=== PATIENT | male | born 1995 | race Caucasian/White ===

== ENCOUNTER 2022-10-05 19:51 | Emergency (ER) | payer OTHER, SELFPAY ==
--- NOTE | ~2022-10-05 | US_ITS ---
EXAMINATION: US SCROTUM CLINICAL INFORMATION: Palpable left scrotal mass. COMPARISON: None TECHNIQUE: A sonogram of the scrotum was performed assessing mac-scale appearance and color Doppler flow. Spectral Doppler analysis of the arterial and venous flow were performed in the testes bilaterally. FINDINGS: RIGHT: Right testicle measures 4.4 x 1.9 x 3.3 cm, volume 14 mL. No focal testicular parenchymal lesions are visualized. Spectral Doppler analysis of the arterial and venous flow is normal in the right testis. Right epididymal head is normal in size. No right hydrocele or varicocele is seen. Right epididymal Doppler flow is normal. LEFT: Left testicle measures 4.1 x 2.0 x 3.2 cm, volume 14 mL. No focal testicular parenchymal lesions are visualized. Spectral Doppler analysis of the arterial and venous flow is normal in the left testis. Left epididymal head is normal in size. No left hydrocele or varicocele is seen. Left epididymal Doppler flow is normal. OTHER FINDINGS: Adjacent to the left testicle, in the area of the palpable abnormality, there is significant extratesticular soft tissue thickening with heterogeneous echogenicity and marked hyperemia. A distinct masslike lesion or organized abscess are not identified. US/US scrotum IMPRESSION: 1. Significant left-sided extratesticular soft tissue thickening and hyperemia in the area of the palpable abnormality. A distinct masslike lesion or organized abscess is not identified. This could be related with cellulitis/phlegmonous changes, correlate with physical examination and continued follow-up after treatment to ensure resolution. 2. No evidence of testicular torsion at the moment of this examination.
--- NOTE | 2022-10-05 20:24 | ED.MALEGU ---
HPI - Male Genitourinary General Chief complaint: Skin/Abscess/Foreign Body <Dottie Brown NP - Last Filed: 10/05/22 20:27> Stated complaint: cyst on scrotal area <Dottie Brown NP - Last Filed: 10/05/22 20:27> Time Seen by Provider: 10/06/22 00:43 <Dottie Brown NP - Last Filed: 10/05/22 20:27> Source: patient <Julius Feng MD - Last Filed: 10/06/22 01:19> Mode of arrival: ambulatory <Julius Feng MD - Last Filed: 10/06/22 01:19> Limitations: no limitations <Julius Feng MD - Last Filed: 10/06/22 01:19> History of Present Illness HPI Narrative: 26-year-old male who presents emergency department for evaluation of pain and swelling of his left scrotal area. The patient states he does shave his pubic hair. He states that he noticed a small bump on his left scrotal area yesterday which is gotten bigger and more painful. He also states that the left scrotum is red and swollen. He denied fever, chills, frequency, urgency dysuria or urethral discharge. Patient states he did have a cyst on his left inner thigh approximately 2 years prior which was treated with antibiotics. He has not had an abscess that is needed to be incised and drained. He has not been on antibiotics recently knee does not have a history of MRSA. <Julius Feng MD - Last Filed: 10/06/22 01:19> Related Data Home medications: Previous Rx's Medication Instructions Recorded cephalexin 500 mg capsule 500 mg PO TID 7 days #21 caps 10/06/22 doxycycline hyclate 100 mg tablet 100 mg PO Q12H 7 days #14 tabs 10/06/22 <Dottie Brown NP - Last Filed: 10/05/22 20:27> Allergies/Adverse reactions: Allergies Allergy/AdvReac Type Severity Reaction Status Date / Time No Known Allergies Allergy Verified 10/05/22 20:25 <Dottie Brown NP - Last Filed: 10/05/22 20:27> Review of Systems Review of Systems: Yes all other systems are reviewed and are negative <Julius Feng MD - Last Filed: 10/06/22 01:19> [facility] Past Medical History [facility] Narrative: Past medical history: Left thigh cyst treated with antibiotic. Past surgical history: None social history: He denies tobacco, alcohol and drug use. <Julius Feng MD - Last Filed: 10/06/22 01:19> Social History Social History: Social History Advance Directives: No <Dottie Brown NP - Last Filed: 10/05/22 20:27> Physical Exam Vital Signs: Vital Signs: Last Vital Signs Temp 98.5 F 10/06/22 00:00 Pulse 67 10/06/22 00:00 Resp 16 10/06/22 00:00 BP 119/73 10/06/22 00:00 Pulse Ox 99 10/06/22 00:00 O2 Del Method 10/06/22 00:00 BMI result Body Mass Index 29.0 <Dottie Brown NP - Last Filed: 10/05/22 20:27> Vital Signs: Last Vital Signs Temp 98.5 F 10/06/22 00:00 Pulse 67 10/06/22 00:00 Resp 16 10/06/22 00:00 BP 119/73 10/06/22 00:00 Pulse Ox 99 10/06/22 00:00 O2 Del Method 10/06/22 00:00 BMI result Body Mass Index 29.0 Vital signs reviewed <Julius Feng MD - Last Filed: 10/06/22 01:19> General: Awake, alert, male patient, very pleasant cooperative, no distress examination: Normal uncircumcised male penis, no urethral discharge or swelling of the ball of the penis, the patient has a indurated area to the lateral aspect of his left scrotum, this area is warm to the touch, there is no flocculence, patient has no significant testicular tenderness or epididymal tenderness or swelling noted on my exam. He does have some tender left inguinal adenopathy compared to the right. <Julius Feng MD - Last Filed: 10/06/22 01:19> Course Course Course Narrative: This is a rapid medical exam. Deferred additional HPI, ROS, PE to primary provider. 26 yo male healthy here with complaints of left scrotal cyst since yesterday. Will obtain ultrasound. VSS. <Dottie Brown NP - Last Filed: 10/05/22 20:27> Medical Decision Making Medical Decision Making MDM Narrative: 26-year-old male who presents emergency department for evaluation of a left scrotal lesion which started yesterday is gotten larger. Physical examination did reveal indurated skin of the left lateral scrotal region which is warm to touch. Patient has no significant testicular or epididymal tenderness. Patient had an ultrasound of his left scrotal area did not reveal any abscess is more consistent with cellulitis. Patient was given Keflex 500 mg orally, doxycycline 100 mg orally and Tylenol 975 mg orally. Patient will be treated with Keflex 500 mg 3 times a day for 7 days and doxycycline 100 mg every 12 hours for 7 days. He was given printed and verbal instructions and discharged home. Patient was advised to apply heating pad for 10-15 minutes 4 to 6 times a day to the indurated area to help increase blood flow and help the healing process. <Julius Feng MD - Last Filed: 10/06/22 01:19> Differential Diagnosis Differential diagnosis includes was not limited to scrotal abscess, scrotal cellulitis, testicular torsion, epididymitis, urethritis <Julius Feng MD - Last Filed: 10/06/22 01:19> Radiology Impression Discussion of test interpretation with radiology: I have reviewed the radiologist's reading. <Julius Feng MD - Last Filed: 10/06/22 01:19> Radiologist Impression: US scrotum IMPRESSION: 1.? Significant left-sided extratesticular soft tissue thickening and hyperemia in the area of the palpable abnormality. A distinct masslike lesion or organized abscess is not identified. This could be related with cellulitis/phlegmonous changes, correlate with physical examination and continued follow-up after treatment to ensure resolution. 2.? No evidence of testicular torsion at the moment of this examination. ? Dictated By:Alexandria Jacome Signed By:<Electronically signed by Alexandria? Ayaz in [place]>[id number] <Julius Feng MD - Last Filed: 10/06/22 01:19> Discharge Plan Discharge Clinical Impression: Cellulitis of scrotum <Dottie Brown NP - Last Filed: 10/05/22 20:27> Patient Disposition: Home, Self-Care <Dottie Brown NP - Last Filed: 10/05/22 20:27> Additional Instructions: The ultrasound of your scrotum is consistent with a skin infection (cellulitis) of your left scrotum. There was no evidence for a collection of pus (abscess) based on the ultrasound and also based on your examination. Take doxycycline 100 mg, 1 pill every 12 hours for 7 days Take Keflex (cephalexin) 500 mg pills, 1 pill 3 times a day for 7 days. Take ibuprofen 200 mg pills, 3 pills every 6 hours as needed for pain. Take Tylenol (acetaminophen) 500 mg pills, 2 pills every 4 to 6 hours as needed for pain. Use a heating pad on low for 15 minutes 4 to 6 times a day to your left scrotal area, this will increase the blood flow to the skin and help fight off the skin infection. Follow-up with your doctor in 2 days. Please return to the emergency department if your symptoms get worse or if you develop any symptoms that are concerning to you. <Dottie Brown NP - Last Filed: 10/05/22 20:27> Prescriptions: New cephalexin 500 mg capsule 500 mg PO TID 7 Days Qty: 21 0RF doxycycline hyclate 100 mg tablet 100 mg PO Q12H 7 Days Qty: 14 0RF <Dottie Brown NP - Last Filed: 10/05/22 20:27>
[2022-10-05 20:26] VITALS: BP 113/78; PULSE 71; RESP 16; TEMP 37.1; O2SAT 97; BMI 29.0
--- OUTSIDE RECORDS SUMMARY | 2022-10-05 23:53 | XMS_ITS | Continuity of Care Document ---
:1995 Author Organization [facility] Care Team Providers Name Role Phone [facility] Unavailable Unavailable Problems Combined list of problems from Department of Defense and Veterans [facility] facilities. It does not include entries that were removed or entered in error. Problem Status Onset Date Problem Type Date of Comments Source Resolution Need For Inactive Condition DoD Vaccination MMR Need For Inactive Condition DoD Vaccination Polio Inactivated Need For Inactive Condition DoD Vaccination Yellow Fever Need For Inactive Condition DoD Vaccination Against Influenza Need For Inactive Condition DoD Prophylactic Antibiotics Need For Inactive Condition DoD Vaccination Against Viral Diseases Need For Inactive Condition DoD Vaccination Hepatitis A And Hepatitis B Need For Inactive Condition DoD Vaccination Against Bacterial Diseases Meningococcal Need For Inactive Condition DoD Vaccination Against Combinations Of Diseases visit for: Inactive Condition DoD screening exam pulmonary tuberculosis astigmatism Active Condition DoD regular refractive error - Active Condition D oD myopia visit for: Inactive Condition [facility] services physical accession Patient Education Inactive Condition Do D - Injury Prevention visit for: ears / Inactive Condition Do D hearing exam visit for: Inactive Condition [facility] services physical Medications Combined list of outpatient medications from Department of Defense and Veterans Affairs facilities. Medications provided include 1) outpatient medications from the last 15 months, and 2) patient-reported medications. Medication Details Route Status Patient Prescription Prescription Last Ordering Order Source Instructions Expires Number Dispense Provider Date Date FLUARIX Active [id number] LYNSEY, rmac QUAD 1 2020 y Data [id number] Transac (influenza tion virus Service vaccine Facilit quadrival y [id number](6 mos and up)/PF), 60MCG/.5ML, SYRINGE, INTRAMUSC, GLAXOSMITHK LINE, .5 ml SYRINGE Allergies, Adverse Reactions, Alerts Combined list of allergies from Department of Defense and Veterans Affairs facilities. It does not include entries that were removed or entered in error. Substance Category Reaction Severity Reaction Status Date Comments S ource type Reported No Known Drug active Camp Allergies allergy 4 Lejeun e (disorder) [facility] Immunizations Combined list of available immunizations from the Department of Defense and Veterans Affairs facilities. Immunization Series Date Administered Site Reaction Lot CVX Drug St atus Comments Source Given By Number Code Manager Urgent Care influenza, 08/18/ LYNSEY, () Not influe nza DoD injectable, 2020 Given , quadrivalent, inject abl preservative e, free quadrival ent, preservat walter free Influenza, 1 05/30/ MILES, [id number] 171 SmithKline compl et Influenza DoD injectable, 2016 TAHIR Levin ([facility]) ed , Madin Davis injectab l Canine e, Madin Kidney, Davis preservative Canine free, Kidney, quadrivalent preserv at walter free, quadrival ent measles, 2 05/25/ FLO, [id number] 03 Merck (MSD) compl et measles, DoD mumps and 2016 SIMON Grimes ed mumps an d rubella virus rubell a vaccine virus vaccine Influenza, 1 06/27/ ROCÍO, [id number] 150 SmithKline comple t Influenza DoD injectable, 2015 LI Grimes ([facility]) ed , quadrivalent, inject abl preservative e, free quadrival ent, preservat walter free influenza, 1 07/13/ JACKELYN, [id number] 149 MedImmune, comple t influenza DoD live, 2014 LUCI J Inc. (MED) ed , brianna e, intranasal, intranas a quadrivalent l, quadrival ent influenza, 1 06/17/ LEROY REN [id number] 149 MedImmune, co mplet influenza DoD live, 2014 Inc. (MED) ed , live, intranasal, intranas a quadrivalent l, quadrival ent typhoid Vi 1 05/09/ LESLIE, [id number] 101 Sanofi complet t yphoid DoD capsular [address] Carrillo ([facility]) ed Vi polysaccharid capsul ar e vaccine polysacch aride vaccine hepatitis A 3 02/24/ JACKELYN, [id number] 104 SmithKline comple t hepatitis DoD and hepatitis 2013 LUCI Sapp (SKB) ed A and B vaccine hepatitis B vaccine hepatitis A 2 09/03/ NATHANIEL, [id number] 104 SmithKline complet hepatitis DoD and hepatitis 2012 CAROLYN Skinner (SKB) ed A and B vaccine hepatitis B vaccine poliovirus 1 09/03/ NATHANIEL, [id number] 10 Sanofi complet austin oviru DoD vaccine, 2013 CAROLYN Carrillo (PMC) ed s inactivated vaccine, inactivat ed measles, 1 09/03/ NATHANIEL, [id number] 03 Merck (MSD) complet measles, DoD mumps and 2013 CAROLYN Skinner ed mumps and rubella virus rubell a vaccine virus vaccine yellow fever 1 09/03/ NATHANIEL, [id number] 37 Sanofi complet yellow DoD vaccine 2013 CAROLYN Carrillo (PMC) ed fever vaccine poliovirus 0 08/30/ UNK 10 Sanofi complet polio viru DoD vaccine, 2013 Pasteur (PMC) ed s inactivated vaccine, inactivat ed yellow fever 0 08/30/ UNK 37 Sanofi complet yel low DoD vaccine 2013 Pasteur (PMC) ed feve r vaccine hepatitis A 2 08/30/ UNK 104 SmithKline complet hepatitis DoD and hepatitis 2013 (SKB) ed A and B vaccine hepatitis B vaccine varicella 1 07/26/ EXEMPT 21 Transcribed Not va ricella DoD virus vaccine 2013 (TRS) Given virus vaccine Adenovirus, 1 07/25/ JABARI CHURCHILL [id number] [employer] com plet Adenoviru DoD type 4 and 2013 R 5 Laboratories ed s, type 4 type 7, live, (BRR) and ty pe oral 7, live, oral hepatitis A 1 07/25/ JABARI CHURCHILL [id number] 104 SmithKline complet hepatitis DoD and hepatitis 2013 R (SKB) ed A and B vaccine hepatitis B vaccine influenza 1 07/25/ JABARI CHURCHILL [id number] 111 MedImmune, c omplet influenza DoD virus 2013 R Inc. (MED) ed virus vaccine, vaccine, live, live, attenuated, attenuat e for d, for intranasal intranasa use l use tuberculin 1 JABARI CHURCHILL [id number] 96 Other (OTH) complet tuberculi DoD skin test; 2012 R ed n skin purified test; protein purified derivative protein solution, derivativ intradermal e solution, intraderm al meningococcal 1 JABARI CHURCHILL [id number] 114 Sanofi complet meningoco DoD polysaccharid 2012 R Gerardo (PMC) ed ccal e (groups A, polysac ch C, Y and aride W-135) (groups diphtheria A, C, Y toxoid and conjugate W-135) vaccine diphtheri (MCV4P) a toxoid conjugate vaccine (MCV4P) tetanus 1 JABARI CHURCHILL [id number] 115 SmithKline comp let tetanus DoD toxoid, 2013 R (SKB) ed toxoid, reduced reduced diphtheria diphtheri toxoid, and a toxoid , acellular and pertu is acellular vaccine, pertussis adsorbed vaccine, adsorbed hepatitis A 1 07/24/ UNK 104 SmithKline complet hepatitis DoD and hepatitis 2012 (SKB) ed A and B vaccine hepatitis B vaccine tetanus 0 07/24/ UNK 115 Sanofi complet tetanus DoD toxoid, 2013 Pasteur (PMC) ed toxo id, reduced reduced diphtheria diphtheri toxoid, and a toxoid , acellular and pertu is acellular vaccine, pertussis adsorbed vaccine, adsorbed Adenovirus, 0 07/24/ UNK 143 Fortnue complet Adeno viru DoD type 4 and 2013 Laboratories ed s, type 4 type 7, live, (BRR) and ty pe oral 7, live, oral influenza, 0 07/24/ UNK 149 MedImmune, complet i nfluenza DoD live, 2013 Inc. (MED) ed , live, intranasal, intranas a quadrivalent l, quadrival ent Encounters Combined list of: 1) Encounters from Department of Veterans Affairs facilities going back up to the last 18 months. 2) Encounters from the Department of Defense facilities going back up to 280 months. Location Location Encounter Encounter Reason Attending ADM DC Stat us Disposition Source Details Type Number For Provider Date Date Visit OUTPATIENT [id number] OCTAVIAN[facility], 07/24 Released w[facility]o [facility]AS D Limitations [facility] johnson(MCR D Hearing Conserv ation) OUTPATIENT [id number] [facility] ed [facility] CARIE J Limitations [facility] Mariano johnson(MCR D Optomet ry Clinic) OUTPATIENT [id number] Initial LELAND, 07/25 Relea sed w/o [employer] Inproce DEEDEE N Limitations [facility] Mariano johnson(MCR D Recruit Medical Process ) OUTPATIENT [id number] , 09/03 Released w/o [employer] Visit NATANAEL Limitations [facility] Inproce Mariano johnson([facility] D Recruit Medical Process ) OUTPATIENT [id number] Notes JACKELYN, 02/24 Released w/o [facility] Entered LUCI J Limitations Po rtsmo by: [facility](Imm ELYSE,DA unizati VID 23 on Feb) 2013 1340 ------- ------- ------- ------- -- Twinrix , Check-i n OUTPATIENT [id number] DEEPAK, 03/06 Released w/o [facility] URI Limitations [place] [facility](Hea ring Cons Noah Sta) OUTPATIENT [id number] Zach NELSON, 05/09 Released w/o [facility] Entered Limitations Po rtsmo by: P [facility](Norbert thompson ANO,MAR on ) May 2014 0949 ------- ------- ------- ------- -- typhoid OUTPATIENT [id number] LEROY Donaldson 06/17 Releas ed w/o [facility] Entered Limitations [place] by: [facility](ANGELA Nascimento lt N L 14 Reconst Jun ruction 2013 / 1546 Joint) ------- ------- ------- ------- -- Flu Team 3 OUTPATIENT [id number] FLU LENO, 08/27 08/27 Sick at [facility] LIKE JOSE S Home/Quarter [place] SYMPTOM s [facility](MHP S WITH Guevara BODY T1) PAIN X2DAYS OUTPATIENT [id number] Zach TATE, 09/15 Released w/o [facility] Entered STEPHEN Limitations Po rtsmo by: [facility](jay Treadwell E on Sep) 2014 1452 ------- ------- ------- ------- -- HPV OUTPATIENT [id number] ROMAN MEEK, 10/06 Released w /o [facility] EYE WILBERT Limitations [place] EXAM [facility](Opt ometry George) OUTPATIENT [id number] STOMACH YOSAY, 10/23 10/23 Sick at [facility] PAIN KADEN /2014 Home/Quarter [place] WORSE s [facility](MHP X3DAYS Guevara T1) OUTPATIENT [id number] brandy CORRALES, 11/07 11/08 Release d w/o [facility] SOSA M /2014 Limitations [place](MHP [place] T1) OUTPATIENT [id number] Zach HAYDEN, 07/13 Released w/o [facility] Entered Limitations Po rtsmo by: [facility](Norbert AZUL, melaniejamshid ASHLEY E on Jul Guevara) 2014 1201 ------- ------- ------- ------- -- Flumist OUTPATIENT [id number] Zach OHARA, 09/14 Released w/o [facility] Entered Limitations [place] by: [facility](Moises jeter ,NAKUL Cons P L 11 Gue[place]a) Sep 2015 1325 ------- ------- ------- ------- -- hcp OUTPATIENT [id number] DOROTHEA CORRALES, 11/10 11/11 Relea sed w/o [facility] Odalys SWAN Limitations [place] NOSEBLE [facility] EDS Guevara PAST T1) 72HRS. OUTPATIENT [id number] BRANDY CORRALES, 01/05 01/06 Release d w/o [facility] SOSA Limitations [place](P [place] T1) OUTPATIENT [id number] Zach VILLA, 06/27 Released w/o [facility] Entered Limitations [place] by: JANNIE [facility] R 24 NMCP) Jun 2016 1413 ------- ------- ------- ------- -- flu shot OUTPATIENT [id number] PAIN/SW TAMMY, 07/06 Releas ed [facility] RAJEEV RIOS P with [place] IN Work/Duty [facility] RIGHT Limitations Gue[place] ANKLE X T1) 24 HRS OUTPATIENT [id number] EYE HENRRY, IGLESIA 07/07 Relea sed w/o N[facility] EXAM/ NMN Limitations [place] CONTACT [facility](Opt S ometry Guevara) OUTPATIENT [id number] Special BRADFORD, 10/27 Rel eased w/o [facility] Duty Limitations [place] Screen PRASANNA [facility](P Gue[place] T2) OUTPATIENT [id number] Zach OHARA, 01/03 Released w/o [facility] Entered Limitations [place] by: [facility](steffany Bates D Cons January) 2016 0832 ------- ------- ------- ------- -- hcp OUTPATIENT [id number] BRANDY CORRALES, 01/03 Release d w/o [facility] SOSA Limitations [place] [facility](MHP Gue[place]a T1) OUTPATIENT [id number] Zach TRIVEDION, 05/25 Release d w/o [facility] Entered Limitations [place] by: [facility](Cornelio Bernard on ) May 2017 1335 ------- ------- ------- ------- -- MMR OUTPATIENT [id number] Zach PENA, 05/30 Released w /o [facility] Entered Limitations [place] by: JANE [facility](HANNAH Gotti Team May [facility]) 2016 1325 ------- ------- ------- ------- -- SHOTEX BROWN OUTPATIENT [id number] Zach OHARA, 09/26 Released w/o [facility] Entered Limitations [place] by: [facility](Moises MARCIAL Cons ,WILFREDO Guevara) E 26 Sep 2017 0828 ------- ------- ------- ------- -- hcp OUTPATIENT [id number] may nathaniel HENRRYIGLESIA 10/27 Rel eased w/o N[facility] NMN /2017 Limitations [place] [facility](Opt ometry Guevara) OUTPATIENT [id number] Zach OHARA, 03/21 Released w/o [facility] Entered Limitations [place] by: [facility](steffany Bates D Cons Mar) 2017 0840 ------- ------- ------- ------- -- hcp OUTPATIENT [id number] ePHA VIDAL, 04/09 Released w/o [facility] MAXIME A Limitations [place] [facility](Med ical Readine ss Guevara) OUTPATIENT [id number] IGLESIA Nunez 04/12 Relea sed w/o N[facility] Entered NMN Limitations [place] by: [facility](Opt CUONG saucedo ,VICTOR MANUEL Guevara) ZEENAT 12 Apr 2018 0830 ------- ------- ------- ------- -- sep phys OUTPATIENT [id number] Separdebby GRIFFIN, 05/15 Rel eased w/o N[facility] ion PE Limitations [place] VILLALOBOS [facility](Med ical Readine ss Guevara) Procedures Combined list of: 1) Procedures from Department of Veterans Affairs facilities going back up to the last 18 months, not all VA non-surgical procedures are included; 2) All procedures from the Department of Defense facilities. Procedure Procedure Type Code Date Perfomer Comments [facility] [place] [address] 05/16/ GABY [facility] Visual Acuity, Visual Acuity, 2017 YANN Quantitative, Quantitative, GRISELDA Bilateral Bilateral Preventive Medicine Preventive Medicine 84065 05/16/ GRIFFIN, Juan Administration Of Administration Of 2018 YANN Health Risk Health Risk GRISELDA Questionnaire Questionnaire Patient-Focused Patient-Focused Visual Function Visual Function 43468 04/12/ IGLESIA SALES DoD Screening Screening 2018 NMN Preventive Medicine Preventive Medicine 61864 04/10/ Juan VIDAL Administration Of Administration Of 2018 MAXIME A Health Risk Health Risk Questionnaire Questionnaire Patient-Focused Patient-Focused Threshold Audiogram Threshold Audiogram 0208T 03/21/ RENEE OHARA DoD (Pure Tone) (Pure Tone) 2018 R Automated Automated Patient education, 03/21/ GLENDA OHARA not otherwise cla 2018 R ified, non-physician provider, group, per se ion Visual Function Visual Function 03465 10/27/ IGLESIA SALES DoD Screening Screening 2018 NMN Threshold Audiogram Threshold Audiogram 0208T 09/26/ RENEE OHARA (Pure Tone) (Pure Tone) 2018 R Automated Automated Patient education, 09/26/ GLENDA OHARA not otherwise cla 2018 R ified, non-physician provider, group, per se ion Viral Influenza Viral Influenza 33118 05/31/ EAST, DoD Vaccine Cell Vaccine Cell 2017 AMRIK La Culture Derivative, Culture Derivative, Antibiotic Free, Antibiotic Free, Quadrivalent, 0.5mL Quadrivalent, 0.5mL Dosage, IM Dosage, IM Immunization Immunization 16408 [facility] Administration By Administration By 2016 AMRIK D Injection, One Injection, One Vaccine Vaccine Vaccines Viral Vaccines Viral 26650 05/25/ FLO, MMR; Serie s #: DoD Measles, Mumps and Measles, Mumps and 2017 SIMON R 2; .5 mL; SC; Rubella, Live Rubella, Live Left Arm; g: Geewa; Lot: [id number]; VIS given (Danielle: 12/23/11). Immunization Immunization 20170 05/25/ [place], [facility] Administration By Administration By 2016 SIMON R Injection, One Injection, One Vaccine Vaccine Patient education, 01/03/ GLENDA OHARA not otherwise cla 2017 R ified, non-physician provider, group, per se ion Threshold Audiogram Threshold Audiogram 0208T 01/03/ RENEE OHARA (Pure Tone) (Pure Tone) 2017 R Automated Automated Prescription And Prescription And 12925 07/07/ HENRRY, IGLESIA Martinez Fitting Bilateral Fitting Bilateral 2016 NMN Corneal Lenses (Not Corneal Lenses (Not For Aphakia) For Aphakia) Spectacles Services Spectacles Services 89386 07/07/ HENRRY, IGLESIA Martinez Fitting Monofocal Fitting Monofocal 2016 NMN Except For Aphakia Except For [place]ph[place] [address] 07/07/ HENRRY, IGLESIA Juan Refractive State Refractive State 2016 CTN Ophthalmological Ophthalmological 35108 07/07/ HENRRY, IGLESIA Juan New Patient Start New Patient Start 2015 [facility] Comprehensive Care Comprehensive Care Influenza Split 06/27/ [facility] Influenza Juan Virus Vaccine IM 2016 LI VALDERRAMA Seasonal, Preserv Free 0.5mL injectable Dosage Quadrivalent quadrivale nt - preservative free; Series #: 1; .5 mL; IM; Right Arm; [facility]: [employer]; Lot: [id number]; VIS given (Danielle: 04/10/2015). Immunization Immunization 05895 06/27/ [facility], [facility] Administration By Administration By 2015 LI VALDERRAMA Injection, One Injection, One Vaccine Vaccine Threshold Audiogram Threshold Audiogram 0208T 09/14/ RENEE OHARA (Pure Tone) (Pure Tone) 2015 R Automated Automated Patient education, 09/14/ GLENDA OHARA not otherwise cla 2015 R ified, non-physician provider, group, per se ion Influenza Virus Influenza Virus 65679 07/13/ JACKELYN Influenz nancy, Juan Vaccine Live Vaccine Live 2014 LUCI Sapp live, Attenuated Attenuated intranasal, Intranasal Intranasal quadrivalent; Quadrivalent Quadrivalent Series #: 1; . 2 mL; IN; Intranasal; Mfg: tic; Lot: [id number]; VIS given (Danielle: 04/22/14). Immunization Admin Immunization Admin 00652 07/13/ Juan HAYDEN By Intranasal / By Intranasal / 2014 LUCI Sapp Oral Route One Oral Route One Vaccine Vaccine Ophthalmological Ophthalmological 88168 10/06/ Juan MEEK New Patient Start New Patient Start 2014 WILBERT Marley Comprehensive Care Comprehensive [place] [address] Juan MEEK Refractive State Refractive State 2014 WILBERT Marley Immunization Admin Immunization Admin 30102 06/17/ LEROY REN DoD By Intranasal / By Intranasal / 2013 Oral Route One Oral Route One Vaccine Vaccine Typhoid [place] [address] 05/09/ LESLIE, Ty phoid, ViCPs; DoD Capsular Capsular 2013 ADALBERTA P Series #: 1; .5 Polysaccharide, For Polysaccharide, For mL; IM; Left Intramus Use Intramus Use Arm; Mfg: Brightkit Pasteur; Lot: [id number]; VIS given (Danielle: 01/31/12). Immunization Immunization 02276 05/09/ Juan NELSON Administration By Administration By 2013 ADALBERTA P Injection, One Injection, One Vaccine Vaccine Threshold Audiogram Threshold Audiogram 0208T 03/06/ ADELFO SOTELO (Pure Tone) (Pure Tone) 2014 S Automated Automated Patient education, 03/06/ URI SOTELO not otherwise cla 2013 S ified, non-physician provider, group, per se ion Hepatitis A And Hepatitis A And 52963 02/24/ JACKELYN, Hep A - Hep B DoD Hepatitis B Hepatitis B 2013 LUCI Sapp (Twinrix); (Intramuscular Use) (Intramuscular Use) Series #: 3; Adult Dosage Adult Dosage 1.0 mL; IM; Right Arm; Mfg: [employer] Fort[employer]; Lot: [id number]. Immunization Immunization 56626 02/24/ JACKELYN [facility] Administration By Administration By 2013 LUCI J Injection, One Injection, One Vaccine Vaccine Physician Physician 69106 [facility] Supervised Supervised 2012 CAROLYN M Injection Injection Intramuscular Intramuscular Antibiotic Antibiotic Vaccines Viral Vaccines Viral 54125 , MMR; Serie s #: DoD Measles, Mumps and Measles, Mumps and 2012 CAROLYN M 1 ; .5 mL; SC; Rubella, Live Rubella, Live Left Arm; Mf g: Geewa; Lot: [id number]. Vaccines Viral Vaccines Viral 00228, IPV; Serie s #: [facility] Polio, Inactivated Polio, Inactivated 2012 CAROLYN M 1 ; .5 mL; SC; Left Arm; Mfg: Brightkit Pasteur; Lot: [id number]. Vaccines Viral Vaccines Viral , Yellow Fev er; DoD Yellow Fever Yellow Fever 2012 CAROLYN M Series #: 1; .5 mL; SC; Left Arm; Mfg: Brightkit Pasteur; Lot: [id number]. Hepatitis A And Hepatitis A And , Hep A - Hep B [facility] Hepatitis B Hepatitis B 2012 CAROLYN M (Twinrix); (Intramuscular Use) (Intramuscular Use) Series #: 2; Adult Dosage Adult Dosage 1.0 mL; IM; Left Arm; [facility]: [employer]; Lot: [id number]. Immunization Immunization 28482 [facility] Administration By Administration By 2012 CAROLYN M Injection, One Injection, One Vaccine Vaccine Immunization Immunization 42543 [facility] Administration By Administration By 2012 CAROLYN M Injection, Each Injection, Each Additional Vaccine Additional Vaccine Venipuncture Venipuncture 04788 07/25/ [facility] 2012 JABARI Grimes Influenza Virus Influenza Virus 57959 [facility] Vaccine Live Vaccine Live 2012 JABARI Grimes Attenuated Attenuated Intranasal Intranasal Quadrivalent Quadrivalent Physician Physician 25136 [facility] Supervised Supervised 2012 JABARI Grimes Injection Injection Intramuscular Intramuscular Antibiotic Antibiotic Hepatitis A And Hepatitis A And 51110 MCLEAN, Hep A - Hep B [facility] Hepatitis B Hepatitis B 2012 JABARI Grimes (Twinrix); (Intramuscular Use) (Intramuscular Use) Series #: 1; Adult Dosage Adult Dosage 1.0 mL; IM; Left Arm; Mfg: [employer]; Lot: [id number]. Meningococcal (A, , Meningococca l [facility] C, Y, W-135) 2012 AMYBETH R A,C,Y,W-135 Oligosacch Diphtheria Diphtheria Toxoid Conj; Series #: Conj Vacc 1; .5 mL; IM; Left Arm; Mfg: Sanofi Pasteur; Lot: [id number]. Tdap Vaccine Tdap Vaccine 18338, Tdap; Series # : [facility] 2012 AMYBETH R 1; .5 mL; IM; Left Arm; Mfg: [employer]; Lot: [id number]. Vaccines Vaccines 74361, Adenovirus Type [facility] 2012 AMYBETH R 4 and 7; Series #: 1; 2 gtts; PO; Left Arm; Mfg: Gamma [employer]; Lot: [id number]. Immunization Admin Immunization Admin 00662 EWS, [facility] By Intranasal / By Intranasal / 2012 AMYBETH R Oral Route One Oral Route One Vaccine Vaccine Immunization Immunization 47043 MCLEAN, [facility] Administration By Administration By 2012 [facility] Injection, Each Injection, Each Additional Vaccine Additional Vaccine Immunization Admin Immunization Admin 00969 , [facility] Intranasal / Oral Intranasal / Oral 2012 AMYBETH R Each Additional Each Additional Vaccine Vaccine Skin Test Anergy Skin Test Anergy 60516 , IPPD; Series #: [facility] Tuberculin Tuberculin 2012 AMYBE R 1; .1 mL; ID; Intradermal Intradermal Left Arm; Mfg: Other; Lot: [id number]. [place] [address] 07/24/ Juan LONG Visual Acuity, Visual Acuity, 2012 YAS Stubbs Quantitative, Quantitative, Bilateral Bilateral Spectacles Services Spectacles Services 30866 07/24/ Juan LONG Fitting Monofocal Fitting Monofocal 2012 YAS Stubbs Except For Aphakia Except For Aphakia Physician Physician 85141 07/24/ Juan TRAN Supervised Group Supervised Group 2012 YANN Stubbs Educational Educational Services Services Audiometry Group Audiometry Group 25899 07/24/ Juan TRAN Testing Testing 2012 YANN Stubbs THERAPEUTIC, PROPHYLACTIC, OR 2012 DIAGNOSTIC INJECTION (SPECIFY SUBSTANCE OR DRUG); SUBCUTANEOUS OR INTRAMUSCULAR COLLECTION OF VENOUS BLOOD BY 2012 VENIPUNCTURE PHYS/OTH QUALIFIED oD HEALTH CARE 2012 PROFESSIONAL QUALIFIED,EDUCATION ,TRAIN,LICENSURE/RE GULATION (WHEN APPLICABLE) EDUC SER RENDERED TO PATS IN A GRP SETTING (EG,,OBESIT Y,OR DIABETIC INSTRUCT) SCREENING TEST OF Do D VISUAL ACUITY, 2012 QUANTITATIVE, BILATERAL SCREENING TEST OF D VISUAL ACUITY, 2017 QUANTITATIVE, BILATERAL VIS FUNCT SCREEN,AUTOMAT/SEMI 2018 -AUTOMAT BILAT QUANT DETERM VISUAL ACUITY,OCULAR ALIGN,COLOR VISION,PSEUDOISOCHR OMAT PLATES,& FIELD VIS (MAY INC ALL/SOME SCRN DETERM FOR CONTRAST SENSITIV,VIS UND GLARE) ADMINISTRATION OF D PATIENT-FOCUSED 2018 HEALTH RISK ASSESSMENT INSTRUMENT (EG, HEALTH HAZARD APPRAISAL) WITH SCORING AND DOCUMENTATION, PER STANDARDIZED INSTRUMENT PURE TONE AUDIOMETRY 2017 (THRESHOLD), AUTOMATED; AIR ONLY VIS FUNCT SCREEN,AUTOMAT/SEMI 2018 -AUTOMAT BILAT QUANT DETERM VISUAL ACUITY,OCULAR ALIGN,COLOR VISION,PSEUDOISOCHR OMAT PLATES,& FIELD VIS (MAY INC ALL/SOME SCRN DETERM FOR CONTRAST SENSITIV,VIS UND GLARE) PURE TONE AUDIOMETRY 2017 (THRESHOLD), AUTOMATED; AIR ONLY INFLUENZA VIRUS VACCINE, 2017 QUADRIVALENT (CCIIV4), DERIVED FROM CELL CULTURES, SUBUNIT, PRESERVATIVE AND ANTIBIOTIC FREE, 0.5 ML DOSAGE, FOR INTRAMUSCULAR USE IMMUNIZATION ADMINISTRATION 2017 (INCLUDES PERCUTANEOUS, INTRADERMAL, SUBCUTANEOUS, OR INTRAMUSCULAR INJECTIONS); 1 VACCINE (SINGLE OR COMBINATION VACCINE/TOXOID) PURE TONE AUDIOMETRY 2017 (THRESHOLD), AUTOMATED; AIR ONLY PRESCRIPTION OF OPTICAL AND 2016 PHYSICAL CHARACTERISTICS OF AND FITTING OF CONTACT LENS, WITH MEDICAL SUPERVISION OF ADAPTATION; CORNEAL LENS, BOTH EYES, EXCEPT FOR APHAKIA IMMUNIZATION ADMINISTRATION 2016 (INCLUDES PERCUTANEOUS, INTRADERMAL, SUBCUTANEOUS, OR INTRAMUSCULAR INJECTIONS); 1 VACCINE (SINGLE OR COMBINATION VACCINE/TOXOID) PATIENT EDUCATION, oD NOT OTHERWISE 2016 CLASSIFIED, NON-PHYSICIAN PROVIDER, GROUP, PER SESSION IMMUNIZATION 11/09/ DoD ADMINISTRATION BY 2014 INTRANASAL OR ORAL ROUTE; 1 VACCINE (SINGLE OR COMBINATION VACCINE/TOXOID) OPHTHALMOLOGICAL SERVICES: MEDICAL 2015 EXAMINATION AND EVALUATION WITH INITIATION OF DIAGNOSTIC AND TREATMENT PROGRAM; COMPREHENSIVE, NEW PATIENT, 1 OR MORE VISITS IMMUNIZATION 06/17/ DoD ADMINISTRATION BY 2013 INTRANASAL OR ORAL ROUTE; 1 VACCINE (SINGLE OR COMBINATION VACCINE/TOXOID) IMMUNIZATION DoD ADMINISTRATION 2013 (INCLUDES PERCUTANEOUS, INTRADERMAL, SUBCUTANEOUS, OR INTRAMUSCULAR INJECTIONS); 1 VACCINE (SINGLE OR COMBINATION VACCINE/TOXOID) PURE TONE DoD AUDIOMETRY 2013 (THRESHOLD), AUTOMATED; AIR ONLY IMMUNIZATION 02/24/ DoD ADMINISTRATION 2013 (INCLUDES PERCUTANEOUS, INTRADERMAL, SUBCUTANEOUS, OR INTRAMUSCULAR INJECTIONS); 1 VACCINE (SINGLE OR COMBINATION VACCINE/TOXOID) Social History Combined list of available smoking, tobacco, and other social history from [facility]. Social History Type Response Date Comment Source This section is an empty social history section. DoD
[2022-10-06] VITALS: BP 119/73; PULSE 67; RESP 16; TEMP 36.9; O2SAT 99
[2022-10-06] MEDS: cephALEXin 500 MG CAPSULE PO (01:52)
[2022-10-06] MEDS: Doxycycline Monohydrate 100 MG CAPSULE PO (01:52)
[2022-10-06] MEDS: Acetaminophen 325 MG TABLET 975 MG PO (01:52)
== END 2022-10-06 01:57 | disposition home or self-care (01) ==
PROVIDERS: Emergency Provider Emergency Medicine Emergency Medical Services
DX: N49.2 Inflammatory disorders of scrotum (principal)
CPT/HCPCS: 76870; 99284

== ENCOUNTER 2023-07-10 09:58 | Outpatient (AMB) | payer OTHER, SELFPAY ==
[2023-07-10 11:10] VITALS: BP 118/76; PULSE 82; TEMP 36.6; O2SAT 97; BMI 29.7
--- NOTE | 2023-07-10 11:10 | MHC.OFFWIV ---
Intake Vital Signs 07/10/23 11:10 Height 5 ft 6 in Weight 184 lb 2 oz BMI 29.7 BP 118/76 Blood Pressure Location Rt brachial Position Sitting Pulse 82 Pulse Source Pulse Oximeter Temp 97.9 F Temp Source Temporal Artery Scan Pulse Oximetry (%) 97 Oxygen Delivery Method Room Air Intake Visit Reasons: EST/stomach pain since monday [phone] Intake Note: pt is here for c/o stomach pain since monday, headaches and not feeling well Patient Tobacco Use Status: Never used Tobacco Allergies No Known Allergies Allergy (Verified 07/10/23 11:10) Do you need a note to return to daycare/school/sports/work: Yes HPI EST/stomach pain since monday [phone] HPI Details 27-year-old male presents to the office for a sick visit. Patient is active . Complains of nausea and abdominal discomfort for the past few days. Does not recall exact precipitating factors. History of GERD in the past. PFSH Social History Patient Tobacco Use Status: Never used Tobacco Physical Exam Vital Signs: Last Vital Signs Temp 97.9 F 07/10/23 11:10 Pulse 82 07/10/23 11:10 BP 118/76 07/10/23 11:10 Pulse Ox 97 07/10/23 11:10 Oxygen Delivery Method Room Air 07/10/23 11:10 BMI result Body Mass Index 29.7 Const General: cooperative and healthy appearing Nutritional Appearance: well nourished Orientation/consciousness: patient oriented x3 Limitations: no limitations HEENT Head: Yes normal to inspection Eyes General: appearance normal, both eyes and all related structures Neck Neck: Yes normal visual inspection Chest Chest palpation & inspection: normal palpation of entire chest wall Resp Effort & Inspection: normal respiratory effort Neuro General: patient oriented x3 Assessment & Plan Assessment & Plan (1) GERD (gastroesophageal reflux disease): Code(s): K21.9 - Gastro-esophageal reflux disease without esophagitis Plan: Avoid carbonated drinks. Increase fluid intake. If symptoms not better to follow-up here. Medications: New pantoprazole 40 mg PO DAILY 14 tabs 0RF Coding Level of Care Code Est Pt Level 3 (46824) Diagnoses GERD (gastroesophageal reflux disease) K21.9
== END 2023-07-10 12:04 | disposition home or self-care (01) ==
PROVIDERS: Visit Provider Internal Medicine
DX: K21.9 Gastro-esophageal reflux disease without esophagitis (principal)
CPT/HCPCS: 99213